=== PATIENT | male | born 1930 | race Caucasian/White ===

== ENCOUNTER → 2017-03-27 | Outpatient (CLI) | payer MEDICARE ==
[~2017-03-27] MED LIST: ASCO500C6 PO; ASPI81TA55 PO; DOXA2TAB PO; DUTA0.5C PO; DXZS2T; LEVO50TA PO; MULT1TAB80 PO; OMG1KC PO; ONDAN4ODT PO; OXB5T PO; OXYB5TAB9; RED600CA2 PO; SOLI5TAB2; VIT1TABL57 PO
[2017-03-27 14:38] LABS: BASOPHILS % (AUTO) 1 % (0-2); EOSINOPHILS # (AUTO) 0.1 10^3uL; EOSINOPHILS % (AUTO) 2 % (0-4); LYMPHOCYTES # (AUTO) 1.3 X10^3; MEAN CORPUSCULAR HGB CONC 34.1 g/dL (31.0-37.0); MEAN CORPUSCULAR VOLUME 92 FL (80-100); MEAN PLATELET VOLUME 9.9 FL (6.0-9.5); MONOCYTES # (AUTO) 0.7 X10^3; MONOCYTES % (AUTO) 11 % (3-11); NEUTROPHILS # (AUTO) 4.4 X10^3; NEUTROPHILS % (AUTO) 67 % (51-67); PLATELET COUNT 169 10^3uL (150-450); WHITE BLOOD COUNT 6.55 10^3uL (4.0-11.0)
[2017-03-27 14:40] LABS: MEAN CORPUSCULAR HEMOGLOBIN 31.4 PG (26.0-34.0)
[2017-03-27 14:41] LABS: BILIRUBIN,URINE Negative (Negative); CLARITY,URINE Turbid; COLOR,URINE Yellow; GLUCOSE, URINE (UA) Negative (Negative); LEUKOCYTE ESTERASE ,URINE 3+ (Negative); UROBILINOGEN,URINE 0.2 mg/dL (0.2-1.0)
[2017-03-27 15:01] LABS: ALBUMIN 3.9 g/dL (3.4-5.0); CALCULATED IONIZED CALCIUM 4.7 mg/dL (3.8-4.6); TOTAL PROTEIN 6.6 g/dL (6.4-8.5)
[2017-03-27 15:25] LABS: URINE CENTRIFUGED VOLUME 12 mL
--- NOTE | 2017-03-27 18:30 | Diagnostic Imaging Report ---
INDICATION: Cardiac arrhythmia. EXAMINATION: PA and lateral chest obtained at 02:48 p.m. COMPARISON: 04/26/2015. FINDINGS: Heart is borderline in size. Pacemaker is unchanged. There are mild chronic appearing increased basilar markings that are similar to the prior study. There is no acute infiltrate or pneumothorax or pleural fluid. IMPRESSION: Borderline heart size. Mild chronic appearing increased basilar markings. No consolidation or pleural fluid. Dictated by: Dictated on workstation # [id number]
== END ==
LOC: LAB 14:11
PROVIDERS: ATTEND Family Medicine
DX: I49.8 Other specified cardiac arrhythmias (principal); R79.89 Other specified abnormal findings of blood chemistry; D50.8 Other iron deficiency anemias; N39.0 Urinary tract infection, site not specified; E13.65 Other specified diabetes mellitus with hyperglycemia; E03.4 Atrophy of thyroid (acquired); M81.0 Age-related osteoporosis without current pathological fracture
CPT/HCPCS: 36415; 71020; 80053; 81003; 81015; 82306; 83036; 84436; 84443; 85025; 87088; 93005